=== PATIENT | male | born 1965 | race Caucasian/White ===

== ENCOUNTER 2019-09-10 10:46 | Inpatient (IN) | payer OTHER ==
[2019-09-10 11:17] VITALS: BMI 23.8
--- NOTE | 2019-09-10 12:24 | HP ---
COWS - Scale Resting Pulse: 0= OK 80 or Below Sweatin= Chills/Flushing Restless Observation: 3= Extraneous Movement Pupil Size: 1= Pupils >than Normal Bone or Joint Aches: 2= Severe Diffuse Aches Runny Nose/ Eye Tearin= Runny Nose/Eyes GI Upset > 30mins: 1= Stomach Cramp (nausea & vomiting) Tremor Observation: 4= Gross Tremor/Twitching Yawning Observation: 0= None Anxiety or Irritability: 1=Feels Anxious/Irritable Goose Flesh Skin: 0=Smooth Skin COWS Score: 15 CIWA Score Nausea/Vomitin-Mild Nausea/No Vomiting Muscle Tremors: 4-Moderate,w/Arms Extend Anxiety: 3 Agitation: 4-Moderately Restless Paroxysmal Sweats: 1-Minimal Palms Moist Orientation: 0-Oriented Tacttile Disturbances: 1-Very Mild Itch/Numbness Auditory Disturbances: 0-None Visual Disturbances: 0-None Headache: 2-Mild CIWA-Ar Total Score: 16 - Admission Criteria OASAS Guidelines: Admission for Medically Managed Detox: Requires at least one of the followin. CIWA greater than 12 2. Seizures within the past 24 hours 3. Delirium tremens within the past 24 hours 4. Hallucinations within the past 24 hours 5. Acute intervention needed for co occurring medical disorder 6. Acute intervention needed for co occurring psychiatric disorder 7. Severe withdrawal that cannot be handled at a lower level of care (continued vomiting, continued diarrhea, abnormal vital signs) requiring intravenous medication and/or fluids 8. Admitting History and Physical - Admission Chief Complaint: benzo withdrawal History Source: Patient Limitations to Obtaining History: No Limitations - Past Medical History Psych: Yes: Bipolar, Schizophrenia - Past Surgical History Additional Past Surgical History: Left ankle surgery - Smoking History Smoking history: Current every day smoker Have you smoked in the past 12 months: Yes Aproximately how many cigarettes per day: 10 - Alcohol/Substance Use Hx Alcohol Use: No History of Substance Use: reports: Heroin, Prescription - Social History Usual Living Arrangement: Yes: Alone Admission [facility] Chief Complaint: benzo withdrawal Allergies/Adverse Reactions: Allergies Allergy/AdvReac Type Severity Reaction Status Date / Time No Known Allergies Allergy Verified 09/10/19 11:08 History of Present Illness: 54 y.o. M PMH bipolar, schizophrenia presenting for detox. Pt gets methadone at [facility] 100mg. Heroin: Sniffs never injected. Last use today, 4 bags. Normally uses daily, 4 bags. On methadone currently. Started using at age 16. States the oxy & fentanyl were probably use to cut the heroin as he didnt take them knowingly. Klonopin: was getting prescription from his psychiatrist who recently quit her job, started buying on the streets. Daily use, 4-6mg daily. Last used 2 days ago. Cigarettes: 1/2 pack day x 40 years. PSH: L ankle Social hx: [place] housing in the [place]. Not currently working. All: None Meds: none Exam Limitations: No Limitations - Ebola screening Have you traveled outside of the country in the last 21 days: No Have you had contact with anyone from an Ebola affected area: No Do you have a fever: No - Review of Systems Constitutional: Chills, Diaphoresis EENT: reports: Tearing, Other (rhinorrhea) Respiratory: reports: No Symptoms reported Cardiac: reports: No Symptoms Reported GI: reports: Constipated, Nausea, Vomiting, Abdominal cramping Musculoskeletal: reports: Joint Pain Integumentary: reports: No Symptoms Reported Neuro: reports: Headache (mild), Tremors Endocrine: reports: No Symptoms Reported Hematology: reports: No Symptoms Reported Psychiatric: reports: Mood/Affect Appropiate, Orientated x3, Agitated Patient History - Patient Medical History Hx Bipolar Disorder: Yes Hx Schizophrenia: Yes - Smoking Cessation Smoking history: Current every day smoker Have you smoked in the past 12 months: Yes Aproximately how many cigarettes per day: 10 Initiated information on smoking cessation: Yes 'Breaking Loose' booklet given: 09/10/19 - Substance & Tx. History Hx Alcohol Use: No Hx Substance Use: Yes Substance Use Type: Heroin, Opiates, Prescribed - Substances abused Benzodiazepine (Klonopin) Other (specify): 1 mg Substance route: Oral Frequency: Daily Amount used: 4 tablet Age of first use: 54 Date of last use: 09/08/19 Heroin Substance route: Inhalation Frequency: Daily Amount used: 4 bags Age of first use: 16 Date of last use: 09/10/19 Admission Physical Exam BHS - Vital Signs Vital Signs: Vital Signs - 24 hr 09/10/19 09/10/19 11:08 12:08 Temperature 98.5 F 98.5 F Pulse Rate 80 80 Respiratory 16 16 Rate Blood Pressure 146/84 146/84 - Physical General Appearance: Yes: Mild Distress, Tremorous, Sweating, Anxious HEENTM: Yes: Normocephalic, BOUCHRA (mydriasis), Pharynx Normal Respiratory: Yes: Lungs Clear, Normal Breath Sounds, No Respiratory Distress, No Accessory Muscle Use Neck: Yes: Within Normal Limits Cardiology: Yes: Regular Rhythm, Regular Rate, S1, S2 Abdominal: Yes: Normal Bowel Sounds, Non Tender, Soft Back: Yes: Within Normal Limits Musculoskeletal: Yes: Within Normal Limits, full range of Motion Extremities: Yes: Within Normal Limits, Normal Range of Motion, Non-Tender Neurological: Yes: miter cutter II-XII NML intact, Fully Oriented, Alert, Normal Mood/ Affect Integumentary: Yes: Within Normal Limits Lymphatic: Yes: Within Normal Limits - Diagnostic (1) Benzodiazepine withdrawal Current Visit: Yes Status: Acute Qualifiers: Complication of substance-induced condition: uncomplicated Qualified Code(s ): F13.230 - Sedative, hypnotic or anxiolytic dependence with withdrawal, uncomplicated Cleared for Admission [facility] - Detox or Rehab [facility] Level of Care: Medically Managed Breathalyzer - Breathalyzer Breathalyzer: 0 Urine Drug Screen - Test Device Lot number: [id number] Expiration date: 05/09/21 - Control Is test valid?: Yes - Results Drug screen NEGATIVE: No Urine drug screen results: FEN-Fentanyl, MOP-Opiates, OXY-Oxycodone, MTD- Methadone, BZO-Benzodiazepines Inpatient Rehab Admission - Rehab Decision to Admit Inpatient rehab admission?: No
[2019-09-10] MEDS ORDERED: hydrOXYzine PAMOATE 25 MG CAPSULE (FP) PO PRN (13:02)
[2019-09-10] MEDS ORDERED: MAGNESIUM HYDROX 2400MG/30ML ORAL SUSPENSION 30 ML CUP PO PRN (13:02)
[2019-09-10] MEDS ORDERED: MAGNESIUM CITRATE 300 ML BOTTLE PO PRN (13:02)
[2019-09-10] MEDS ORDERED: ACETAMINOPHEN 325 MG TABLET (FP) PO PRN (13:02)
[2019-09-10] MEDS ORDERED: IBUPROFEN 400 MG TABLET (FP) PO PRN (13:02)
[2019-09-10] MEDS ORDERED: BISMUTH SUBSALICYLATE 262 MG/15 ML BTL PO PRN (13:02)
[2019-09-10] MEDS ORDERED: METHOCARBAMOL 500 MG TABLET PO PRN (13:02)
[2019-09-10] MEDS ORDERED: MAG HYDROX/AL HYDROX/SIMETH 30 ML UNIT-DOSE CUP PO PRN (13:02)
[2019-09-10] MEDS ORDERED: MENTHOL/PHENOL 1 EACH UD MM PRN (13:02)
--- NOTE | 2019-09-10 13:24 | PN ---
Teaching Attending Note Name of Resident: Kath Maldonado ATTENDING PHYSICIAN STATEMENT I saw and evaluated the patient. I reviewed the resident's note and discussed the case with the resident. I agree with the resident's findings and plan as documented. SUBJECTIVE: this 54 years old male with klononon dependence,mmtp 100 mgs/day,ambulation with cane,last detox 2013 OBJECTIVE: Vital Signs Temperature 98.5 F 09/10/19 12:08 Pulse Rate 80 09/10/19 12:08 Respiratory Rate 16 09/10/19 12:08 Blood Pressure 146/84 09/10/19 12:08 O2 Sat by Pulse Oximetry (%) withdrawal signs and symptom ASSESSMENT AND PLAN: patient need inpatient detox,medically managed,valium regimen
--- NOTE | 2019-09-10 14:14 | EKG ---
Test Reason : Blood Pressure : / mmHG Vent. Rate : 077 BPM Atrial Rate : 077 BPM P-R Int : 114 ms QRS Dur : 068 ms QT Int : 482 ms P-R-T Axes : 065 041 042 degrees QTc Int : 545 ms NORMAL SINUS RHYTHM PROLONGED QT ABNORMAL ECG NO PREVIOUS ECGS AVAILABLE Confirmed by RUBENS CALI MD ([id number]) on 09/10/2019 2:13:30 PM Referred By: Confirmed By:RUBENS CALI MD
[2019-09-10] MEDS: diazePAM 5 MG TABLET PO PRN (14:30)
[2019-09-10] MEDS: diazePAM 5 MG TABLET PO SCH ×2 (14:33→22:04)
[2019-09-10 16:32] LABS: HEMATOCRIT 38.3 % (35.4-49); HEMOGLOBIN 13.3 GM/dL (11.7-16.9); MCH 28.9 pg (25.7-33.7); MCHC 34.6 g/dl (32.0-35.9); MEAN CELL VOLUME 83.6 fl (80-96); MEAN PLT VOLUME 8.8 fl (7.5-11.1); PLATELET COUNT 366 K/MM3 (134-434); RBC 4.58 M/mm3 (4.00-5.60); RDW 14.2 % (11.9-15.9)
[2019-09-10 16:39] LABS: ALBUMIN 4.4 g/dl (3.4-5.0); BILIRUBIN,TOTAL 0.5 mg/dL (0.2-1); BLOOD UREA NITROGEN 15.6 mg/dL (7-18); CALCIUM 9.8 mg/dL (8.5-10.1); CREATININE 1.1 mg/dL (0.55-1.3); POTASSIUM 4.6 mmol/L (3.5-5.1); TOT PROT 7.9 g/dl (6.4-8.2)
[2019-09-10] MEDS: MELATONIN 5 MG TABLETS PO PRN (22:04)
[2019-09-10] MEDS: THIAMINE HCL 100 MG TABLET (FP) PO SCH (22:04)
[2019-09-11] MEDS ORDERED: METHADONE HCL 10 MG TABLET ONE (04:29)
[2019-09-11] MEDS ORDERED: METHADONE HCL 40 MG DISPERSABLE TABLET ONE (04:29)
[2019-09-11] MEDS: diazePAM 5 MG TABLET PO SCH ×3 (05:03→22:20)
[2019-09-11] MEDS: METHADONE 80 MG, METHADONE 20 MG PO SCH (05:03)
[2019-09-11] MEDS ORDERED: METHADONE HCL 10 MG TABLET PO SCH (06:00)
[2019-09-11] MEDS: diazePAM 5 MG TABLET PO PRN (08:53)
--- NOTE | 2019-09-11 09:56 | PN ---
[facility] CIWA - CIWA Score Nausea/Vomitin-No Nausea/No Vomiting Muscle Tremors: 2 Anxiety: 3 Agitation: 0-Normal Activity Paroxysmal Sweats: 3 Orientation: 0-Oriented Tacttile Disturbances: 0-None Auditory Disturbances: 0-None Visual Disturbances: 0-None Headache: 2-Mild CIWA-Ar Total Score: 10 BHS COWS - Scale Resting Pulse: 0= ID 80 or Below Sweatin= Chills/Flushing Restless Observation: 1= Difficult to Sit Still Pupil Size: 0= Normal to Room Light Bone or Joint Aches: 2= Severe Diffuse Aches Runny Nose/ Eye Tearin= None GI Upset > 30mins: 1= Stomach Cramp Tremor Observation of Outstretched Hands: 2= Slight Tremor Visible Yawning Observation: 1= 1-2x During Session Anxiety or Irritability: 2=Irritable/Anxious Goose Flesh Skin: 0=Smooth Skin COWS Score: 10 S Progress Note (SOAP) Subjective: c/o muscle aches, stomach cramps, headache, shakes, and anxiety. Objective: 09/11/19 09:55 Vital Signs 09/11/19 09/11/19 09/11/19 03:30 06:03 09:05 Temperature 96.7 F L 96.3 F L Pulse Rate 76 75 Respiratory 18 18 18 Rate Blood Pressure 122/82 121/82 Lab Results WBC 15.0 K/mm3 (4.0-10.0) H 09/10/19 13:05 RBC 4.58 M/mm3 (4.00-5.60) 09/10/19 13:05 Hgb 13.3 GM/dL (11.7-16.9) 09/10/19 13:05 Hct 38.3 % (35.4-49) 09/10/19 13:05 MCV 83.6 fl (80-96) 09/10/19 13:05 MCHC 34.6 g/dl (32.0-35.9) 09/10/19 13:05 RDW 14.2 % (11.9-15.9) 09/10/19 13:05 Plt Count 366 K/MM3 (134-434) 09/10/19 13:05 Sodium 142 mmol/L (136-145) 09/10/19 13:05 Potassium 4.6 mmol/L (3.5-5.1) 09/10/19 13:05 Chloride 103 mmol/L (98-107) 09/10/19 13:05 Carbon Dioxide 31 mmol/L (21-32) 09/10/19 13:05 Anion Gap 8 MMOL/L (8-16) 09/10/19 13:05 BUN 15.6 mg/dL (7-18) 09/10/19 13:05 Creatinine 1.1 mg/dL (0.55-1.3) 09/10/19 13:05 Random Glucose 75 mg/dL (74-106) 09/10/19 13:05 Calcium 9.8 mg/dL (8.5-10.1) 09/10/19 13:05 Labs noted. Assessment: 09/11/19 09:55 AOX3, in no acute respiratory distress. Full ROM, ambulating in the unit with a cane. Withdrawal symptoms. Plan: continue detox.
[2019-09-11] MEDS: PRENATAL VITAMINS W/ FOLIC ACID TABLET (FP) PO SCH (10:23)
[2019-09-11] MEDS: ACETAMINOPHEN 325 MG TABLET (FP) PO PRN ×2 (10:24→22:20)
--- NOTE | 2019-09-11 13:21 | CONSULT ---
[facility] Psychiatric Consult - Data Date of interview: 09/11/19 Admission source: [facility] Identifying data: First admission to [facility] for this 54 y/o male self-referred for detoxification (MIYA issues : heroin, nicotine). Interviewed at [address] [place] [address]. Patient is , a father of one, domiciled, unemployed and deprived of financial assistance. Substance Abuse History: Discussed with the patient. Details in current [facility] report as follows : Smoking history: Current every day smoker. Have you smoked in the past 12 months: Yes. Aproximately how many cigarettes per day: 10. Initiated information on smoking cessation: Yes. 'Breaking Loose' booklet given : 09/10/19. - Substance & Tx. History. Hx Alcohol Use: No. Hx Substance Use: Yes. Substance Use Type: Heroin, Opiates, Prescribed. - Substances abused. * * Benzodiazepine (Klonopin). Other (specify): 1 mg. Substance route: Oral. Frequency: Daily. Amount used: 4 tablet. Age of first use: 54. Date of last use: 09/08/19. Heroin. Substance route: Inhalation. Frequency: Daily. Amount used: 4 bags. Age of first use: 16. Date of last use: 09/10/19 Medical History: History of orthosurgery (fracture of left ankle 20 years ago). Patient ambulates with a cane. Psychiatric History: No reported history of psychiatric hospitalizations. Patient indicates that he was diagnosed, in the past, with Bipolar Disorder, MDD and Schizoaffective Disorder. " I was taking klonopin." Mr Mcarthur denies current affiliation with psychiatric OPD care providers. Denies history of suicide attempts. Physical/Sexual Abuse/Trauma History: Patient denies. Additional Comment: Urine drug screen results: FEN-Fentanyl, MOP-Opiates, OXY- Oxycodone, MTD-Methadone, BZO-Benzodiazepines. Noted. Mental Status Exam - Mental Status Exam Alert and Oriented to: Time, Place, Person Cognitive Function: Good Patient Appearance: Well Groomed (neat ) Mood: Withdrawn, Hopeful Affect: Appropriate, Normal Range Patient Behavior: Fatigued, Appropriate, Cooperative Speech Pattern: Clear, Appropriate Voice Loudness: Normal Thought Process: Intact, Goal Oriented Thought Disorder: Not Present Hallucinations: Denies Suicidal Ideation: Denies Homicidal Ideation: Denies Insight/Judgement: Poor Sleep: Poorly, Difficulty falling asleep Appetite: Good Gait/Station: Other (ambulates with cane) Psychiatric Findings - Problem List ([place] 1, 2,3) (1) Benzodiazepine withdrawal Current Visit: Yes Status: Acute Qualifiers: Complication of substance-induced condition: uncomplicated Qualified Code(s ): F13.230 - Sedative, hypnotic or anxiolytic dependence with withdrawal, uncomplicated (2) Opioid dependence on agonist therapy Current Visit: Yes Status: Chronic (3) Nicotine dependence Current Visit: Yes Status: Chronic (4) Substance induced mood disorder Current Visit: Yes Status: Chronic (5) History of bipolar disorder Current Visit: Yes Status: Chronic Comment: Self-report. (6) Insomnia Current Visit: Yes Status: Chronic - Initial Treatment Plan Initial Treatment Plan: Psychoeducation. Support. Sleep hygiene. Detoxification. Insomnia is addressed with mirtazapine 7.5 mg po hs. Side effects/benefits discussed with the patient. Mr Mcarthur is in agreement with this plan of care. Gave verbal consent to MD. MOODY meetings. Observation.
[2019-09-11] MEDS: MIRTAZAPINE 15 MG TABLET (FP) PO SCH (22:19)
[2019-09-11] MEDS: MELATONIN 5 MG TABLETS PO PRN (22:20)
[2019-09-11] MEDS: THIAMINE HCL 100 MG TABLET (FP) PO SCH ×2 (22:20→22:23)
[2019-09-12] MEDS ORDERED: METHADONE HCL 10 MG TABLET ONE (04:28)
[2019-09-12] MEDS ORDERED: METHADONE HCL 40 MG DISPERSABLE TABLET ONE (04:29)
[2019-09-12] MEDS: METHADONE 80 MG, METHADONE 20 MG PO SCH (05:12)
[2019-09-12] MEDS: diazePAM 5 MG TABLET PO SCH ×2 (05:12→17:22)
[2019-09-12] MEDS: diazePAM 5 MG TABLET PO PRN (08:37)
[2019-09-12] MEDS: PRENATAL VITAMINS W/ FOLIC ACID TABLET (FP) PO SCH (10:17)
[2019-09-12] MEDS: NICOTINE POLACRILEX 2 MG GUM BUC PRN (10:18)
--- NOTE | 2019-09-12 14:16 | PN ---
S CIWA - CIWA Score Nausea/Vomitin-No Nausea/No Vomiting Muscle Tremors: 1-None Visible, but [place] Anxiety: 3 Agitation: 2 Paroxysmal Sweats: 1-Minimal Palms Moist Orientation: 0-Oriented Tacttile Disturbances: 0-None Auditory Disturbances: 0-None Visual Disturbances: 0-None Headache: 0-None Present CIWA-Ar Total Score: 7 BHS Progress Note (SOAP) Subjective: 54 years old male admitted on 09/10/19 for benzo withdrawal sx management treated with valium detox regimen patient tolerated well received methadone 100 mg po daily Objective: 09/12/19 14:14 Vital Signs Temperature 97.6 F 09/12/19 13:35 Pulse Rate 74 09/12/19 13:35 Respiratory Rate 16 09/12/19 13:35 Blood Pressure 127/72 09/12/19 13:35 O2 Sat by Pulse Oximetry (%) Laboratory Last Values WBC 15.0 K/mm3 (4.0-10.0) H 09/10/19 13:05 RBC 4.58 M/mm3 (4.00-5.60) 09/10/19 13:05 Hgb 13.3 GM/dL (11.7-16.9) 09/10/19 13:05 Hct 38.3 % (35.4-49) 09/10/19 13:05 MCV 83.6 fl (80-96) 09/10/19 13:05 MCH 28.9 pg (25.7-33.7) 09/10/19 13:05 MCHC 34.6 g/dl (32.0-35.9) 09/10/19 13:05 RDW 14.2 % (11.9-15.9) 09/10/19 13:05 Plt Count 366 K/MM3 (134-434) 09/10/19 13:05 MPV 8.8 fl (7.5-11.1) 09/10/19 13:05 Sodium 142 mmol/L (136-145) 09/10/19 13:05 Potassium 4.6 mmol/L (3.5-5.1) 09/10/19 13:05 Chloride 103 mmol/L (98-107) 09/10/19 13:05 Carbon Dioxide 31 mmol/L (21-32) 09/10/19 13:05 Anion Gap 8 MMOL/L (8-16) 09/10/19 13:05 BUN 15.6 mg/dL (7-18) 09/10/19 13:05 Creatinine 1.1 mg/dL (0.55-1.3) 09/10/19 13:05 Est GFR (CKD-EPI)AfAm 87.13 09/10/19 13:05 Est GFR (CKD-EPI)NonAf 75.17 09/10/19 13:05 Random Glucose 75 mg/dL (74-106) 09/10/19 13:05 Calcium 9.8 mg/dL (8.5-10.1) 09/10/19 13:05 Total Bilirubin 0.5 mg/dL (0.2-1) 09/10/19 13:05 AST 13 U/L (15-37) L 09/10/19 13:05 ALT 16 U/L (13-61) 09/10/19 13:05 Alkaline Phosphatase 121 U/L (45-117) H 09/10/19 13:05 Total Protein 7.9 g/dl (6.4-8.2) 09/10/19 13:05 Albumin 4.4 g/dl (3.4-5.0) 09/10/19 13:05 RPR Titer Nonreactive (NONREACTIVE) 09/10/19 13:05 lab noted Assessment: 09/12/19 14:16 benzo withdrawal sx Plan: continue valium detox regimen
[2019-09-12] MEDS: MIRTAZAPINE 15 MG TABLET (FP) PO SCH (22:09)
[2019-09-12] MEDS: THIAMINE HCL 100 MG TABLET (FP) PO SCH (22:10)
[2019-09-12] MEDS: MELATONIN 5 MG TABLETS PO PRN (22:10)
[2019-09-13] MEDS ORDERED: METHADONE HCL 10 MG TABLET ONE (04:59)
[2019-09-13] MEDS ORDERED: METHADONE HCL 40 MG DISPERSABLE TABLET ONE (04:59)
[2019-09-13] MEDS: METHADONE 80 MG, METHADONE 20 MG PO SCH (05:34)
[2019-09-13] MEDS ORDERED: diazePAM 5 MG TABLET PO ONE (06:00)
[2019-09-13 09:44] LABS: PH,URINE 6.5 (5.0-8.0); URINE APPEARANCE CLOUDY; URINE BILIRUBIN NEGATIVE (NEGATIVE); URINE COLOR YELLOW; URINE GLUCOSE (UA) NEGATIVE (NEGATIVE); URINE KETONE NEGATIVE (NEGATIVE); URINE LEUK ESTERASE NEGATIVE (NEGATIVE); URINE NITRITE NEGATIVE (NEGATIVE); URINE PROTEIN NEGATIVE (NEGATIVE); URINE UROBILINOGEN 0.2 mg/dL (0.2-1.0)
[2019-09-13] MEDS: NICOTINE POLACRILEX 2 MG GUM BUC PRN (10:14)
[2019-09-13] MEDS: PRENATAL VITAMINS W/ FOLIC ACID TABLET (FP) PO SCH (10:14)
--- NOTE | 2019-09-13 11:30 | PN ---
S CIWA - CIWA Score Nausea/Vomitin-No Nausea/No Vomiting Muscle Tremors: 2 Anxiety: 2 Agitation: 2 Paroxysmal Sweats: No Perspiration Orientation: 0-Oriented Tacttile Disturbances: 0-None Auditory Disturbances: 0-None Visual Disturbances: 0-None Headache: 0-None Present CIWA-Ar Total Score: 6 BHS Progress Note (SOAP) Subjective: 54 years old male admitted on 09/10/19 for benzo withdrawal sx management treated with valium detox regimen patient tolerated well anxious ambulating with cane x 20 years due to left ankle trauma and surgically repaired received methadone 100 mg po today Objective: 09/13/19 11:26 Vital Signs Temperature 97.4 F L 09/13/19 09:18 Pulse Rate 68 09/13/19 09:18 Respiratory Rate 16 09/13/19 09:18 Blood Pressure 136/79 09/13/19 09:18 O2 Sat by Pulse Oximetry (%) Laboratory Last Values WBC 15.0 K/mm3 (4.0-10.0) H 09/10/19 13:05 RBC 4.58 M/mm3 (4.00-5.60) 09/10/19 13:05 Hgb 13.3 GM/dL (11.7-16.9) 09/10/19 13:05 Hct 38.3 % (35.4-49) 09/10/19 13:05 MCV 83.6 fl (80-96) 09/10/19 13:05 MCH 28.9 pg (25.7-33.7) 09/10/19 13:05 MCHC 34.6 g/dl (32.0-35.9) 09/10/19 13:05 RDW 14.2 % (11.9-15.9) 09/10/19 13:05 Plt Count 366 K/MM3 (134-434) 09/10/19 13:05 MPV 8.8 fl (7.5-11.1) 09/10/19 13:05 Sodium 142 mmol/L (136-145) 09/10/19 13:05 Potassium 4.6 mmol/L (3.5-5.1) 09/10/19 13:05 Chloride 103 mmol/L (98-107) 09/10/19 13:05 Carbon Dioxide 31 mmol/L (21-32) 09/10/19 13:05 Anion Gap 8 MMOL/L (8-16) 09/10/19 13:05 BUN 15.6 mg/dL (7-18) 09/10/19 13:05 Creatinine 1.1 mg/dL (0.55-1.3) 09/10/19 13:05 Est GFR (CKD-EPI)AfAm 87.13 09/10/19 13:05 Est GFR (CKD-EPI)NonAf 75.17 09/10/19 13:05 Random Glucose 75 mg/dL (74-106) 09/10/19 13:05 Calcium 9.8 mg/dL (8.5-10.1) 09/10/19 13:05 Total Bilirubin 0.5 mg/dL (0.2-1) 09/10/19 13:05 AST 13 U/L (15-37) L 09/10/19 13:05 ALT 16 U/L (13-61) 09/10/19 13:05 Alkaline Phosphatase 121 U/L (45-117) H 09/10/19 13:05 Total Protein 7.9 g/dl (6.4-8.2) 09/10/19 13:05 Albumin 4.4 g/dl (3.4-5.0) 09/10/19 13:05 Urine Color Yellow 09/13/19 08:00 Urine Appearance Cloudy 09/13/19 08:00 Urine pH 6.5 (5.0-8.0) 09/13/19 08:00 Ur Specific [place] 1.019 (1.010-1.035) 09/13/19 08:00 Urine Protein Negative (NEGATIVE) 09/13/19 08:00 Urine Glucose (UA) Negative (NEGATIVE) 09/13/19 08:00 Urine Ketones Negative (NEGATIVE) 09/13/19 08:00 Urine Blood Negative (NEGATIVE) 09/13/19 08:00 Urine Nitrite Negative (NEGATIVE) 09/13/19 08:00 Urine Bilirubin Negative (NEGATIVE) 09/13/19 08:00 Urine Urobilinogen 0.2 mg/dL (0.2-1.0) 09/13/19 08:00 Ur Leukocyte Esterase Negative (NEGATIVE) 09/13/19 08:00 RPR Titer Nonreactive (NONREACTIVE) 09/10/19 13:05 lab noted no coughing no shortness of breath 09/13/19 11:29 wbc elevation patient agrees to bring lab report to methadone program for follow up Assessment: 09/13/19 11:28 benzo withdrawal sx Plan: continue medically supervised detox regimen
[2019-09-13] MEDS: MELATONIN 5 MG TABLETS PO PRN (22:13)
[2019-09-13] MEDS: MIRTAZAPINE 15 MG TABLET (FP) PO SCH (22:13)
[2019-09-13] MEDS: THIAMINE HCL 100 MG TABLET (FP) PO SCH (22:13)
[2019-09-14] MEDS ORDERED: METHADONE HCL 40 MG DISPERSABLE TABLET ONE (04:06)
[2019-09-14] MEDS ORDERED: METHADONE HCL 10 MG TABLET ONE (04:06)
[2019-09-14] MEDS: METHADONE 80 MG, METHADONE 20 MG PO SCH (05:11)
[2019-09-14 06:04] VITALS: BP 135/80; PULSE 79; TEMP 97
--- NOTE | 2019-09-14 13:05 | DS ---
[facility] Detox Discharge Summary Admission Date: 09/10/19 Discharge Date: 09/14/19 - History Present History: Sedative Dependence Additional Comments: 54 years old male admitted on 09/10/19 for benzo withdrawal sx management treated with valium detox regimen patient tolerated well patient is alert oriented x 3 cardiac S1S2 regular rate rhyth, respiratory clear lung bilaterally on auscultation abdomen soft no rebound tenderness - Physical Exam Results Vital Signs: Vital Signs Temperature 97 F L 09/14/19 06:04 Pulse Rate 79 09/14/19 06:04 Respiratory Rate 16 09/14/19 06:04 Blood Pressure 135/80 09/14/19 06:04 O2 Sat by Pulse Oximetry (%) Pertinent Admission Physical Exam Findings: benzo withdrawal sx Laboratory Last Values WBC 15.0 K/mm3 (4.0-10.0) H 09/10/19 13:05 RBC 4.58 M/mm3 (4.00-5.60) 09/10/19 13:05 Hgb 13.3 GM/dL (11.7-16.9) 09/10/19 13:05 Hct 38.3 % (35.4-49) 09/10/19 13:05 MCV 83.6 fl (80-96) 09/10/19 13:05 MCH 28.9 pg (25.7-33.7) 09/10/19 13:05 MCHC 34.6 g/dl (32.0-35.9) 09/10/19 13:05 RDW 14.2 % (11.9-15.9) 09/10/19 13:05 Plt Count 366 K/MM3 (134-434) 09/10/19 13:05 MPV 8.8 fl (7.5-11.1) 09/10/19 13:05 Sodium 142 mmol/L (136-145) 09/10/19 13:05 Potassium 4.6 mmol/L (3.5-5.1) 09/10/19 13:05 Chloride 103 mmol/L (98-107) 09/10/19 13:05 Carbon Dioxide 31 mmol/L (21-32) 09/10/19 13:05 Anion Gap 8 MMOL/L (8-16) 09/10/19 13:05 BUN 15.6 mg/dL (7-18) 09/10/19 13:05 Creatinine 1.1 mg/dL (0.55-1.3) 09/10/19 13:05 Est GFR (CKD-EPI)AfAm 87.13 09/10/19 13:05 Est GFR (CKD-EPI)NonAf 75.17 09/10/19 13:05 Random Glucose 75 mg/dL (74-106) 09/10/19 13:05 Calcium 9.8 mg/dL (8.5-10.1) 09/10/19 13:05 Total Bilirubin 0.5 mg/dL (0.2-1) 09/10/19 13:05 AST 13 U/L (15-37) L 09/10/19 13:05 ALT 16 U/L (13-61) 09/10/19 13:05 Alkaline Phosphatase 121 U/L (45-117) H 09/10/19 13:05 Total Protein 7.9 g/dl (6.4-8.2) 09/10/19 13:05 Albumin 4.4 g/dl (3.4-5.0) 09/10/19 13:05 Urine Color Yellow 09/13/19 08:00 Urine Appearance Cloudy 09/13/19 08:00 Urine pH 6.5 (5.0-8.0) 09/13/19 08:00 Ur Specific [place] 1.019 (1.010-1.035) 09/13/19 08:00 Urine Protein Negative (NEGATIVE) 09/13/19 08:00 Urine Glucose (UA) Negative (NEGATIVE) 09/13/19 08:00 Urine Ketones Negative (NEGATIVE) 09/13/19 08:00 Urine Blood Negative (NEGATIVE) 09/13/19 08:00 Urine Nitrite Negative (NEGATIVE) 09/13/19 08:00 Urine Bilirubin Negative (NEGATIVE) 09/13/19 08:00 Urine Urobilinogen 0.2 mg/dL (0.2-1.0) 09/13/19 08:00 Ur Leukocyte Esterase Negative (NEGATIVE) 09/13/19 08:00 RPR Titer Nonreactive (NONREACTIVE) 09/10/19 13:05 lab noted patient agrees to bringing in lab report to methadone program for wbc elevation follow up - Treatment Hospital Course: Detox Protocol Followed, Detoxed Safely, Responded well, Discharged Condition Good, Rehab Referral Accepted Patient has Accepted a Rehab Referral to: return to methadone program - Medication Discharge Medications: Ambulatory Orders NK [No Known Home Medication] 09/10/19 - Diagnosis (1) Nicotine dependence Status: Acute Qualifiers: Nicotine product type: cigarettes Substance use status: in withdrawal Qualified Code(s): F17.213 - Nicotine dependence, cigarettes, with withdrawal (2) Opioid dependence on agonist therapy Status: Chronic (3) Substance induced mood disorder Status: Suspected - AMA Did Patient Leave Against Medical Advice: No CIWA Score - CIWA Score Nausea/Vomitin-No Nausea/No Vomiting Muscle Tremors: 1-None Visible, but [place] Anxiety: 1-Mildly Anxious Agitation: 1-Slight > Activity Paroxysmal Sweats: No Perspiration Orientation: 0-Oriented Tacttile Disturbances: 0-None Auditory Disturbances: 0-None Visual Disturbances: 0-None Headache: 0-None Present CIWA-Ar Total Score: 3
== END 2019-09-14 08:53 | disposition home or self-care (01) | DRG 773 ==
LOC: YASAS 10:46 → Y3N 13:57
PROVIDERS: ADMIT Allergy & Immunology; ATTEND Allergy & Immunology
PROC: HZ2ZZZZ Detoxification Services for Substance Abuse Treatment (ICD-10-PCS; principal; 2019-09-10)
DX: F13.230 Sedative, hypnotic or anxiolytic dependence with withdrawal, uncomplicated (principal); F11.20 Opioid dependence, uncomplicated; F17.213 Nicotine dependence, cigarettes, with withdrawal; F19.24 Other psychoactive substance dependence with psychoactive substance-induced mood disorder; D72.829 Elevated white blood cell count, unspecified; G47.00 Insomnia, unspecified
CPT/HCPCS: 36415; 80053; 81003; 85027; 86593; 93005; 93010